=== PATIENT | female | born 1990 | race Caucasian/White ===

== ENCOUNTER → 2016-03-04 | Outpatient (CLI) | payer OTHER ==
[~2016-03-04] MED LIST: [UNRECOGNIZED DRUG - OTHER]
--- NOTE | 2016-03-04 14:50 | REP ---
Clinical: Maternal hypertension. Growth evaluation . Comparison: None . Findings: Examination demonstrates a single live intrauterine in cephalic presentation. motion is identified by technologist. Placenta is noted fundal and grade one without evidence for placenta previa or abruption. Amniotic fluid volume is normal. Cervix measures 4.4 cm in length and appears closed. No evidence for nuchal cord. Gestational age by LMP 32 weeks 6 days with KARLIE 04/23/2016 . Gestational age by current measurements 33 weeks 2 days with KARLIE 04/20/2016 . FHR equals 133 beats per minute. BPD 8.5 cm 34 weeks 2 days HC 30.2 cm 33 weeks 3 days AC 31.4 cm 35 weeks 3 days FL 6.2 cm 32 weeks 0 days HL 5.4 cm 31 weeks 3 days HC/AC ratio 0.96 Estimated weight 2364 grams ( 69th percentile). Amniotic fluid index equals 20.4 cm (8.3 - 24.5) SD ratio equals 2.40 Anatomical assessment demonstrates normal structures including cranium, choroid plexus, cavum, cerebellum/posterior fossa, facial features, four-chamber heart, diaphragm, stomach, three-vessel cord, bladder. Impression: Single live advanced gestation in cephalic presentation demonstrating appropriate interval growth. No gross abnormalities are identified. Signed by Raj Morejon MD 03/04/2016 02:41 P
== END ==
LOC: M RAD 13:43
PROVIDERS: ATTEND Advanced Practice Midwife
DX: Z36 Encounter for antenatal screening of mother (principal); O16.3 Unspecified maternal hypertension, third trimester; Z3A.33 33 weeks gestation of pregnancy

== ENCOUNTER 2016-04-28 06:50 | Inpatient (IN) | payer OTHER ==
[~2016-04-28] VITALS: Ht 177.8 cm; Wt 145.0 kg
[2016-04-28] VITALS (33 sets, daily range): BP systolic 113–179; BP diastolic 62–109
[2016-04-28] MEDS ORDERED: PENICILLIN G POTASSIUM IV 5 MU in D5W MINI-BAG PLUS 100 ML IV STA ×2 (07:31→18:57)
[2016-04-28] MEDS ORDERED: miSOPROStol 50 MCG 1/2 TAB (S0191) PV ONE (08:45)
[2016-04-28 08:57] LABS: MEAN CORPUSCULAR HEMOGLOBIN 29.9 pg (27.0-33.0); MEAN CORPUSCULAR VOLUME 87.8 fl (80.0-96.0); RED CELL DISTRIBUTION WIDTH 13.6 % (11.5-14.5); WHITE BLOOD COUNT 11.2 K/mm3 (4.0-10.0)
[2016-04-28] MEDS ORDERED: PENICILLIN G POTASSIUM IV 2.5 MU in D5W 100 ML IV SCH ×2 (11:45→23:00)
[2016-04-28] MEDS: raNITIdine SYRUP 150 MG/10 ML UDC PO SCH ×2 (11:47→21:00)
[2016-04-28] MEDS ORDERED: OXYTOCIN DRIP 30 UNITS in APPROPRIATE DILUENT 1 EA IV SCH ×2 (13:30→21:22)
[2016-04-28] MEDS: LR 1,000 ML IV SCH ×2 (13:32→21:36)
[2016-04-28] MEDS ORDERED: FENTANYL 2MCG/ML ROPIVACAINE 0.2% NACL 250 ML CADD As Ordered ONE (19:10)
[2016-04-28] MEDS ORDERED: ONDANSETRON 4MG/2ML VIAL (J2405) IV PRN (21:15)
[2016-04-28] MEDS ORDERED: EPIDURAL/PCA KEYS XX PRN (21:15)
[2016-04-28] MEDS ORDERED: EPIDURAL COMMENT XX SCH (21:15)
[2016-04-28] MEDS ORDERED: diphenhydrAMINE INJ 50MG/ML VIAL (J1200) IV PRN (21:15)
[2016-04-28] MEDS ORDERED: NALOXONE INJ 0.4 MG/1 ML VIAL (J2310) IV PRN (21:15)
[2016-04-28] MEDS ORDERED: LACTATED RINGER'S 1000 ML IV PRN (21:15)
[2016-04-28] MEDS ORDERED: REFRIGERATOR IV KEYS XX PRN (21:15)
[2016-04-28] MEDS ORDERED: FENTANYL/ROPIVACAINE/NACL CADD 250 ML EPIDURAL SCH (21:15)
--- NOTE | 2016-04-28 21:20 | DNPDOC ---
Delivery Note Delivery Note DATE OF DELIVERY: Apr 28, 2016 at 20:43 PREDELIVERY DIAGNOSIS: 40w5d gestation IOL for pre- BMI 41.8, velamentous cord insertion POST DELIVERY DIAGNOSIS: Delivered PROCEDURE: Spontaneous vaginal delivery ALLERGY AND IMMUNOLOGY SPECIALIST: Dr. Amado Rivero MD ANESTHESIA: epidural ESTIMATED BLOOD LOSS: 200 mL. FINDINGS: meconium stained fluid noted upon SROM, female infant, Score 9/9 DELIVERY SUMMARY: Naheed is a 26yo G3 now P2102 who was admitted to L&D for IOL secondary to 40w5d gestation in the setting of pre- BMI of 41.8 and velamentous cord insertion. She had an uncomplicated of a viable female infant at 2042 on 28 April 2016. Meconium present from the time of SROM. Head delivered OA, restituted GUILLERMO. No nuchal cord. Left anterior shoulder delivered followed by posterior shoulder and corpus. Cord clamped x2 and cut by FOB. Infant mouth/ nares bulb suctioned. Spontaneous cry noted. Baby placed on mother's abdomen. Apgars 9/9, weight pending as of the writing of this note for planned 1 hour of maternal- [id number] bonding (please see weight documented elsewhere in the medical record). Cord blood obtained due to maternal blood type of O pos. With gentle downward guidance and suprapubic pressure, placenta delivered spontaneously and intact- significant velamentous cord insertion noted. Fundal massage until both uterine fundus and lower uterine segment firm; fundus at U- 1. Pitocin 30 units IV bolus administered. Inspection of perineum and vaginal wall revealed superficial right labial abrasion with good hemostasis. Mom and infant in stable condition. AMADO RIVERO MD Apr 28, 2016 21:20
[2016-04-28] MEDS ORDERED: MEASLES,MUMPS,RUBELLA VACCINE INJ (MMR-II) (90707) SC SCH (21:30)
[2016-04-28] MEDS ORDERED: RHOGAM 300 MCG (1500 IU) INJ (J2790) IM SCH (21:30)
[2016-04-29] MEDS: ACETAMINOPHEN 500 MG TAB PO PRN ×2 (03:12→15:52)
[2016-04-29] MEDS: LR 1,000 ML IV SCH ×3 (05:20→21:20)
[2016-04-29 05:59] VITALS: BP 140/87
[2016-04-29] MEDS: PRENATAL VITAMIN TAB PO SCH (08:25)
[2016-04-29] MEDS: IBUPROFEN 800 MG TAB PO PRN ×2 (08:26→23:51)
[2016-04-29] MEDS: raNITIdine SYRUP 150 MG/10 ML UDC PO SCH ×2 (08:27→20:56)
--- NOTE | 2016-04-29 10:53 | IPNPDOC ---
Text Note Date of Service The patient was seen on 04/29/16. NOTE PPD 1 Naheed is a 26yo doing well on PPD 1 s/p uncomplicated at 2042 on 04/28/16. She is . Lochia normal, spontaneously voiding and ambulating without difficulty. Tolerating regular diet. Denies f/c/n/v/SOB/CP/BARRETT/abdominal pain. Vitals wnl (some recent mild range bp's), afebrile Exam: General: WDWN, NAD, morbidly obese, resting comfortably Cardiac: S1S2 present, no murmur Lungs: CTAB without wheeze/crackles Abdomen: soft, NTTP, fundus firm u-2cm Extremities: no tenderness of calves bilaterally Assessment: Naheed is a 26yo doing well on PPD 1 s/p uncomplicated at 2042 on 04/28/16. No e/o infection, hemodynamically stable. Plan: -routine care -regular diet -motrin and tylenol prn pain -desires minipill for contraception -likely discharge home tomorrow Dr. Amado Rivero MD [place] BERTIN VS,[place], I+O VS, [place], I+O Vital Signs Date Time Temp Pulse Resp B/P Pulse Ox O2 Delivery O2 Flow Rate FiO2 04/29/16 05:59 97.3 93 18 140/87 97 Room Air I&O- Last 24 Hours up to 6 AM 04/29/16 06:00 Intake Total 2520 ml Output Total 3100 ml Balance -580 ml AMADO RIVERO MD Apr 29, 2016 10:53
[2016-04-29 18:19] VITALS: BP 134/86
[2016-04-30] MEDS: LR 1,000 ML IV SCH (05:20)
[2016-04-30 05:48] VITALS: BP 138/90
[2016-04-30] MEDS: PRENATAL VITAMIN TAB PO SCH (07:58)
[2016-04-30] MEDS: IBUPROFEN 800 MG TAB PO PRN (08:00)
[2016-04-30] MEDS: raNITIdine SYRUP 150 MG/10 ML UDC PO SCH (08:02)
[2016-04-30] MEDS ORDERED: IBUP-1114 PO (11:22)
[2016-04-30] MEDS ORDERED: ACET50TA PO (11:22)
== END 2016-04-30 12:00 | disposition home or self-care (01) | DRG 775 ==
LOC: EDBD 06:50 → M LDI 06:50 → M OBS 22:23
PROVIDERS: ADMIT Obstetrics & Gynecology; ATTEND Obstetrics & Gynecology
PROC: 10E0XZZ Delivery of Products of Conception, External Approach (ICD-10-PCS; principal; 2016-04-28)
PROC: 3E0P7GC Introduction of Other Therapeutic Substance into Female Reproductive, Via Natural or Artificial Opening (ICD-10-PCS; 2016-04-28)
DX: O48.0 Post-term pregnancy (principal); Z68.41 Body mass index [BMI] 40.0-44.9, adult; O99.824 Streptococcus B carrier state complicating childbirth; Z3A.40 40 weeks gestation of pregnancy; O69.89X0 Labor and delivery complicated by other cord complications, not applicable or unspecified; O99.214 Obesity complicating childbirth; E66.9 Obesity, unspecified; O26.03 Excessive weight gain in pregnancy, third trimester; O22.03 Varicose veins of lower extremity in pregnancy, third trimester; Z37.0 Single live birth

== ENCOUNTER 2016-07-20 15:03 | Outpatient (RCR) | payer OTHER ==
[~2016-07-20 15:03] MED LIST changes: +ACET50TA PO; +IBUP-1114 PO
== END 2016-07-21 ==
LOC: M PT 15:03
PROVIDERS: ATTEND Nurse Practitioner Family
DX: Z51.89 Encounter for other specified aftercare (principal); M25.551 Pain in right hip

== ENCOUNTER 2016-08-18 10:15 | Outpatient (RCR) | payer OTHER | END 2016-08-20 | LOC: M PT 10:15 | PROVIDERS: ATTEND Nurse Practitioner Family | DX: Z51.89 Encounter for other specified aftercare (principal); M25.551 Pain in right hip ==

== ENCOUNTER → 2022-02-04 | Outpatient (REF) | payer OTHER ==
[~2022-02-04] MED LIST changes: -ACET50TA PO; +MAPA500T2 PO
== END ==
LOC: M PLALAB 16:43
PROVIDERS: ATTEND Nurse Practitioner Family
DX: Z12.4 Encounter for screening for malignant neoplasm of cervix (principal)
CPT/HCPCS: 87624; G0123

== ENCOUNTER → 2022-02-04 | Outpatient (CLI) | payer OTHER ==
[2022-02-04 16:09] LABS: THYROID STIMULATING HORMONE 0.979 uIU/ML (0.55-4.78)
[2022-02-04 16:10] LABS: FREE T4 1.15 NG/DL (0.89-1.76); PROLACTIN 4.66 NG/ML
[2022-02-04 18:37] LABS: HEMOGLOBIN A1c 5.4 % (4.0-6.0)
== END ==
LOC: M PLALAB 14:12
PROVIDERS: ATTEND Nurse Practitioner Family
DX: L68.0 Hirsutism (principal)

== ENCOUNTER 2024-02-14 01:05 | Emergency (ER) | payer OTHER ==
[~2024-02-14] VITALS: Ht 177.8 cm; Wt 136.4 kg
[2024-02-15] MEDS ORDERED: VALI5TAB PO (00:46)
[2024-02-15] MEDS: diazePAM 10MG/2ML SYRINGE IV ONE (00:55)
[2024-02-15 01:15] VITALS: BP 120/61; TEMP 97.3; O2SAT 97
[2024-02-15] MEDS: diazePAM 5MG TABLET PO ONE (01:23)
== END 2024-02-15 01:26 | disposition home or self-care (01) ==
LOC: M ED 02-15 01:05
DX: S70.01XA Contusion of right hip, initial encounter (principal); S30.0XXA Contusion of lower back and pelvis, initial encounter; Y92.019 Unspecified place in single-family (private) house as the place of occurrence of the external cause; Y93.9 Activity, unspecified; Y99.9 Unspecified external cause status; W01.0XXA Fall on same level from slipping, tripping and stumbling without subsequent striking against object, initial encounter; Z91.040 Latex allergy status; Z88.5 Allergy status to narcotic agent; Z91.010 Allergy to peanuts; Z79.899 Other long term (current) drug therapy
CPT/HCPCS: 72125; 72128; 72131; 72192; 96374; 99284; J3360

== ENCOUNTER 2024-02-20 14:22 | Emergency (ER) | payer OTHER ==
[~2024-02-20] VITALS: Ht 177.8 cm; Wt 135.8 kg
[~2024-02-20 14:22] MED LIST changes: +VALI5TAB PO
[2024-02-20 18:38] LABS: BASO % 0.3 % (0.0-1.0); EOS # 0.1 10^3/uL (0.0-0.5); EOS % 1.4 % (0.0-3.0); HEMATOCRIT 42.7 % (36.0-47.0); HEMOGLOBIN 13.9 g/dl (12.0-15.5); LYMPH # 2.2 10^3/uL (1.5-5.0); LYMPH % 30.1 % (24.0-44.0); MEAN CORPUSCULAR HEMOGLOBIN 28.4 pg (27.0-33.0); MEAN CORPUSCULAR HGB CONC 32.6 g/dl (32.0-36.5); MEAN CORPUSCULAR VOLUME 87.1 fl (80.0-96.0); MONO # 0.5 10^3/uL (0.0-0.8); MONO % 6.9 % (2.0-8.0); NEUTROPHILS # 4.4 10^3/uL (1.5-8.5); PLATELET COUNT, AUTOMATED 263 10^3/uL (150-450); WHITE BLOOD COUNT 7.2 10^3/uL (4.0-10.0)
[2024-02-20 19:01] LABS: LIPASE 34 U/L (12-53)
[2024-02-20 19:04] LABS: ALBUMIN 3.9 G/DL (3.2-5.2); ALKALINE PHOSPHATASE 90 U/L (35-104); ALT/SGPT 42 U/L (7.0-40); AST/SGOT 27 U/L (<34); BILIRUBIN,DIRECT < 0.1 MG/DL (<0.4); BILIRUBIN,TOTAL 0.3 MG/DL (0.3-1.2); TOTAL PROTEIN 7.7 G/DL (5.7-8.2)
[2024-02-20] MEDS: ACETAMINOPHEN *IV* 1,000 MG in IV 1 EA IV ONE (19:45)
[2024-02-20 19:56] LABS: URINE PREG TEST NEGATIVE (NEGATIVE)
[2024-02-20 19:58] LABS: APPEARANCE, URINE CLEAR (CLEAR); BACTERIA, URINE AUTO 1+ (NEGATIVE); BILIRUBIN, URINE AUTO NEGATIVE (NEGATIVE); BLOOD, URINE BLOOD NEGATIVE (NEGATIVE); COLOR, URINE STRAW (YELLOW); GLUCOSE, URINE (UA) AUTO NEGATIVE (NEGATIVE); KETONE, URINE AUTO NEGATIVE (NEGATIVE); LEUKOCYTE ESTERASE, URINE AUTO NEGATIVE (NEGATIVE); MUCUS, URINE SMALL (NEGATIVE); NITRITE, URINE AUTO NEGATIVE (NEGATIVE); PROTEIN, URINE AUTO NEGATIVE (NEGATIVE); RBC, URINE AUTO 0 /HPF (0-3); SPECIFIC GRAVITY URINE AUTO 1.004 (1.002-1.035); SQUAMOUS EPITHELIAL CELL UR AU 0 /HPF (0-6); UROBILINOGEN, URINE AUTO 0.2 mg/dL (0.0-2.0); WBC, URINE AUTO 0 /HPF (0-3)
[2024-02-20] MEDS ORDERED: ISOVUE-370 76% 100ML VIAL As Ordered ONE (20:47)
[2024-02-20] MEDS ORDERED: MIRA3350 PO (21:29)
[2024-02-20 21:31] VITALS: BP 139/84; TEMP 97.5; O2SAT 96
== END 2024-02-20 21:41 | disposition home or self-care (01) ==
LOC: M ED 14:22
DX: S06.0X0A Concussion without loss of consciousness, initial encounter (principal); K59.00 Constipation, unspecified; Y92.9 Unspecified place or not applicable; Y93.9 Activity, unspecified; Y99.9 Unspecified external cause status; I10 Essential (primary) hypertension; K21.9 Gastro-esophageal reflux disease without esophagitis; F41.9 Anxiety disorder, unspecified; F32.A Depression, unspecified; Z88.5 Allergy status to narcotic agent; Z91.040 Latex allergy status; Z91.010 Allergy to peanuts; Z79.899 Other long term (current) drug therapy
CPT/HCPCS: 36415; 70450; 74177; 76705; 80047; 80076; 81001; 83690; 84703; 85025; 87486; 87581; 87633; 87798; 96374; 99284; J0131; Q9967

== ENCOUNTER → 2024-07-12 | Outpatient (CLI) | payer OTHER ==
[~2024-07-12] MED LIST changes: +MIRA3350 PO
== END ==
LOC: M WHC 08:48
PROVIDERS: ATTEND Nurse Practitioner Family
DX: T83.32XA Displacement of intrauterine contraceptive device, initial encounter (principal); D25.9 Leiomyoma of uterus, unspecified